=== PATIENT | male | born 1980 | race Caucasian/White ===

== ENCOUNTER 2019-10-26 20:27 | Emergency (ER) | payer MEDICAID, MEDICARE ==
[~2019-10-26] VITALS: Ht 180.3 cm; Wt 115.3 kg
[~2019-10-26 20:27] MED LIST: ALPR0.25 PO; AMOX1TAB12 PO; FURO40TA6 PO; METR500T PO; OXYC10TA6 PO; POTA20TA14 PO; SPIR50TA4 PO; SULF-169 PO; TRAZ50TA66 PO; ZOLP-413 PO
--- NOTE | 2019-10-26 20:36 | NUR ---
PT TO LOBBY, WAIT TIME EXPLAINED.
[2019-10-26 20:57] LABS: BASOPHILS # (AUTO) 0.05 x10^3/uL (0-0.1); BASOPHILS % (AUTO) 1 % (0-1); EOSINOPHILS # (AUTO) 0.08 x10^3/uL (0-0.4); EOSINOPHILS % (AUTO) 1 % (1-7); LYMPHOCYTES # (AUTO) 2.36 x10^3/uL (1-3.4); LYMPHOCYTES % (AUTO) 34 % (22-44); MD NO; MEAN CORPUSCULAR HEMOGLOBIN 36.1 pg (27.5-34.5); MEAN CORPUSCULAR HGB CONC 33.8 g/dL (33.2-36.2); MEAN CORPUSCULAR VOLUME 106.7 fL (81-97); MEAN PLATELET VOLUME 9.3 fL (7.4-10.4); MONOCYTES # (AUTO) 0.43 x10^3/uL (0.2-0.8); MONOCYTES % (AUTO) 6 % (2-9); NEUTROPHILS # (AUTO) 3.97 x10^3/uL (1.8-6.8); NEUTROPHILS % (AUTO) 58 % (42-75); PLATELET COUNT 168 x10^3/uL (130-400); RED BLOOD COUNT 4.57 x10^6/uL (4.38-5.82)
[2019-10-26] MEDS ORDERED: SODIUM CHLORIDE FLUSH 10ML SYR IVF ONE (21:00)
[2019-10-26 21:08] LABS: ALANINE AMINOTRANSFERASE 105 U/L (12-78); ALBUMIN 3.7 g/dL (3.4-5.0); ANION GAP 12 mmol/L (5-15); CALCIUM 9.3 mg/dL (8.5-10.1); CHLORIDE 88 mmol/L (98-107); CREATININE 1.38 mg/dL (0.7-1.3)
[2019-10-26 21:10] LABS: ALKALINE PHOSPHATASE 165 U/L (45-117); BILIRUBIN,TOTAL 5.8 mg/dL (0.2-1.0); TOTAL PROTEIN 6.9 g/dL (6.4-8.2)
--- NOTE | 2019-10-26 21:11 | NUR ---
PT STATES LAST ATE AT 1800, BUT THEN IMMEDIATELY VOMITED.
[2019-10-26] MEDS ORDERED: SODIUM CHLORIDE 0.9% 1,000 ML IV ONE (21:20)
--- NOTE | 2019-10-26 21:26 | NUR ---
PT TO ED FOR DETOX FROM ETOH, ABD SWELLING AND N/V/D X 4 DAYS SINCE PT STOPPED DRINKING. PT STATES HE WAS SOBER FOR 1 YEAR AND STARTED DRINKING AGAIN IN SEPTEMBER. PT CONNECTED TO ALL MONITORS. JORDYN VELA TO BS FOR ASSESSMENT. AWAITING ORDERS.
[2019-10-26] MEDS ORDERED: ONDANSETRON 2MG/ML, 2ML ONE (21:28)
[2019-10-26] MEDS ORDERED: MAGNESIUM SULFATE 1 GM, THIAMINE 100 MG, FOLIC ACID 1 MG, MVI ADULT 10 ML in SODIUM CHL... IV ONE (21:30)
[2019-10-26] MEDS ORDERED: ONDANSETRON 2MG/ML, 2ML IVPush ONE (21:30)
[2019-10-26] MEDS ORDERED: POTASSIUM CHLORIDE 40 MEQ in SODIUM CHLORIDE 0.9% 500 ML IV ONE (21:30)
--- NOTE | 2019-10-26 21:37 | NUR ---
PT MEDICATED PER [facility] FOR NAUSEA. IVF STARTED. PT TO CT AT THIS TIME.
[2019-10-26 21:42] LABS: INTERNATIONAL NORMALIZED RATIO 1.17 (0.93-1.1); PROTHROMBIN TIME 12.2 Seconds (9.6-11.5)
[2019-10-26] MEDS ORDERED: OMNIPAQUE 350 MG/ML, 100ML BOTTLE ONE (21:51)
--- NOTE | 2019-10-26 22:30 | NUR ---
blurb writer called pharmacy, pharmacy oked banana bag to run in 4hrs instead of 8 hrs as long as pt can handle fluid rate.
--- NOTE | 2019-10-27 01:52 | NUR ---
PT RESTING IN BED WATCHING TV. PT STATED "HE FEELS BETTER AND IS READY TO LEAVE BUT IS ANXIOUS ABOUT NOT SLEEPING AT [facility] SINCE HE HAS HAD A HARD TIME FALLING A SLEEP LATELY, PT REQUESTED SLEEPING PILL RX FROM ER"
[2019-10-27 02:54] VITALS: BP 115/69
== END 2019-10-27 02:57 | disposition home or self-care (01) ==
LOC: ED 21:42
DX: K43.9 Ventral hernia without obstruction or gangrene (principal); R11.2 Nausea with vomiting, unspecified; M10.9 Gout, unspecified; E87.6 Hypokalemia; Z72.89 Other problems related to lifestyle
CPT/HCPCS: 36415; 74177; 80053; 80307; 83690; 85025; 85610; 85730; 96361; 96365; 96366; 96368; 96375; 99284; J2405; J3411; J3475; J3480; J7030; J7040; Q9967; 99291

== ENCOUNTER 2019-11-29 19:29 | Emergency (ER) | payer MEDICARE ==
[~2019-11-29] VITALS: Ht 180.3 cm; Wt 118.8 kg
[2019-11-29] MEDS ORDERED: SODIUM CHLORIDE 0.9% 1,000ML IVBOLUS ONE (20:30)
[2019-11-29] MEDS ORDERED: THIAMINE 100 MG/ML, 2ML IM ONE (20:30)
[2019-11-29] MEDS ORDERED: SODIUM CHLORIDE FLUSH 10ML SYR IVF ONE (20:30)
[2019-11-29] MEDS ORDERED: ONDANSETRON ODT 4 MG PO ONE (20:30)
[2019-11-29 20:53] LABS: BASOPHILS # (AUTO) 0.04 x10^3/uL (0-0.1); BASOPHILS % (AUTO) 1 % (0-1); EOSINOPHILS # (AUTO) 0.12 x10^3/uL (0-0.4); EOSINOPHILS % (AUTO) 2 % (1-7); LYMPHOCYTES # (AUTO) 1.38 x10^3/uL (1-3.4); LYMPHOCYTES % (AUTO) 22 % (22-44); MD NO; MEAN CORPUSCULAR HEMOGLOBIN 37.5 pg (27.5-34.5); MEAN CORPUSCULAR HGB CONC 35.2 g/dL (33.2-36.2); MEAN CORPUSCULAR VOLUME 106.3 fL (81-97); MEAN PLATELET VOLUME 9.3 fL (7.4-10.4); MONOCYTES % (AUTO) 6 % (2-9); NEUTROPHILS # (AUTO) 4.49 x10^3/uL (1.8-6.8); NEUTROPHILS % (AUTO) 70 % (42-75); PLATELET COUNT 134 x10^3/uL (130-400); RED BLOOD COUNT 3.96 x10^6/uL (4.38-5.82); RED CELL DISTRIBUTION WIDTH 14.9 % (9.4-14.8)
[2019-11-29 21:02] LABS: ALANINE AMINOTRANSFERASE 80 U/L (12-78); ALBUMIN 3.7 g/dL (3.4-5.0); ANION GAP 8 mmol/L (5-15); CALCIUM 8.7 mg/dL (8.5-10.1); CHLORIDE 95 mmol/L (98-107)
[2019-11-29 21:05] LABS: ALKALINE PHOSPHATASE 161 U/L (45-117); BILIRUBIN,TOTAL 6.3 mg/dL (0.2-1.0); CREATININE 0.92 mg/dL (0.7-1.3)
--- NOTE | 2019-11-29 21:42 | NUR ---
pt to room from lobby
[2019-11-29 21:59] VITALS: BP 114/90
[2019-11-29] MEDS ORDERED: LORazepam 2 MG/ML, 1ML IVPush ONE (22:00)
[2019-11-29] MEDS ORDERED: POTASSIUM CHLORIDE 20 MEQ TAB.ER.PRT PO ONE (22:00)
--- NOTE | 2019-11-29 22:00 | NUR ---
This is a 39 yo male who "Did on a "grissom" started saturday till night; detox on saturday morning; feels like liver hurts; also did methamphetamines to help with detox". Patient is restless and jittery. All monitoring in place, vss, tachycardic when taking and moving around, at rest HR in 90's. Will continue to monitor. Call light in reach
[2019-11-29] MEDS ORDERED: LORazepam 2 MG/ML, 1ML ONE (22:04)
[2019-11-29] MEDS ORDERED: POTASSIUM CHLORIDE 20 MEQ TAB.ER.PRT ONE (22:04)
[2019-11-29] MEDS ORDERED: ONDANSETRON ODT 4 MG ONE (22:04)
--- NOTE | 2019-11-29 22:10 | NUR ---
CLIF Galarza medicated patient per emar
--- NOTE | 2019-11-29 22:20 | NUR ---
PT TO US
[2019-11-29] MEDS ORDERED: THIAMINE 100 MG/ML, 2ML ONE (22:28)
--- NOTE | 2019-11-30 | NUR ---
PATIENT GIVEN THIAMINE SHOT, PIV DISCONTINUED
--- NOTE | 2019-11-30 00:10 | NUR ---
Patient/Caregiver given discharge instructions and they have confirmed that they understand the instructions. Patient ambulatory with steady gait.
== END 2019-11-30 00:11 | disposition home or self-care (01) ==
LOC: ED 22:02
DX: F10.239 Alcohol dependence with withdrawal, unspecified (principal); E87.6 Hypokalemia; F15.10 Other stimulant abuse, uncomplicated; Y90.9 Presence of alcohol in blood, level not specified
CPT/HCPCS: 36415; 74021; 76700; 80053; 83690; 85025; 86704; 86706; 86708; 86803; 87340; 96361; 96372; 96374; 99284; J2060; J3411; J7030; Q0162

== ENCOUNTER 2020-01-24 13:51 | Emergency (ER) | payer MEDICARE ==
[~2020-01-24] VITALS: Ht 180.3 cm; Wt 118.2 kg
[2020-01-24] MEDS ORDERED: ONDANSETRON 2MG/ML, 2ML ONE ×2 (14:29→15:28)
[2020-01-24] MEDS ORDERED: SODIUM CHLORIDE FLUSH 10ML SYR IVF ONE (14:30)
[2020-01-24] MEDS ORDERED: LORazepam 2 MG/ML, 1ML ONE ×2 (14:30→15:27)
[2020-01-24] MEDS ORDERED: FAMOTIDINE 20 MG/2 ML IVPush ONE (14:30)
[2020-01-24] MEDS ORDERED: ONDANSETRON 2MG/ML, 2ML IVPush ONE ×2 (14:30→15:30)
[2020-01-24] MEDS ORDERED: FAMOTIDINE 20 MG/2 ML ONE (14:30)
[2020-01-24] MEDS ORDERED: SODIUM CHLORIDE 0.9% 1,000ML IVBOLUS ONE (14:30)
[2020-01-24 14:36] LABS: BASOPHILS # (AUTO) 0.02 x10^3/uL (0-0.1); BASOPHILS % (AUTO) 0 % (0-1); EOSINOPHILS # (AUTO) 0.01 x10^3/uL (0-0.4); EOSINOPHILS % (AUTO) 0 % (1-7); LYMPHOCYTES # (AUTO) 0.43 x10^3/uL (1-3.4); LYMPHOCYTES % (AUTO) 6 % (22-44); MD NO; MEAN CORPUSCULAR HEMOGLOBIN 32.4 pg (27.5-34.5); MEAN CORPUSCULAR HGB CONC 33.8 g/dL (33.2-36.2); MEAN CORPUSCULAR VOLUME 95.6 fL (81-97); MEAN PLATELET VOLUME 8.1 fL (7.4-10.4); MONOCYTES # (AUTO) 0.28 x10^3/uL (0.2-0.8); MONOCYTES % (AUTO) 4 % (2-9); NEUTROPHILS # (AUTO) 6.75 x10^3/uL (1.8-6.8); NEUTROPHILS % (AUTO) 90 % (42-75); PLATELET COUNT 133 x10^3/uL (130-400); RED BLOOD COUNT 5.39 x10^6/uL (4.38-5.82); RED CELL DISTRIBUTION WIDTH 15.6 % (9.4-14.8)
[2020-01-24] MEDS: LORazepam 2 MG/ML, 1ML IVPush PRN ×2 (14:44→15:33)
[2020-01-24 14:47] LABS: ALANINE AMINOTRANSFERASE 60 U/L (12-78); ANION GAP 14 mmol/L (5-15); CALCIUM 8.3 mg/dL (8.5-10.1); CHLORIDE 108 mmol/L (98-107); CREATININE 1.09 mg/dL (0.7-1.3)
[2020-01-24 14:49] LABS: ALKALINE PHOSPHATASE 113 U/L (45-117); BILIRUBIN,TOTAL 2.5 mg/dL (0.2-1.0); TOTAL PROTEIN 7.4 g/dL (6.4-8.2)
--- NOTE | 2020-01-24 14:49 | NUR ---
THIS IS A 39 YO MALE WHO PRESENTS TO THE ER C/O N/V AND SHAKING SINCE QUITTING DRINKING APPROX 3 DAYS AGO. PT REPORTS HX OF BINGE DRINKING. STATES HE WENT ON A 3-DAY LOWRY DRINKING 2 PINTS/DAY. PT SHAKING FOOT NONSTOP. PT MEDICATED ORDERED. PT ON CONT BP, CARDIAC AND O2 MONITORS. CALL LIGHT WITHIN REACH. WILL CONT TO MONITOR PT.
--- NOTE | 2020-01-24 15:13 | NUR ---
PT APPEARS LESS TREMULOUS AND REPORTS "FEELING A LITTLE BETTER, BUT STILL A LITTLE TWITCHY". PT REQUESTING MORE NAUSEA MEDICATION. CHADWICK CALZADA WAS AT BEDSIDE FOR RECHECK. PT ON CONT BP AND O2 MONITORS. CALL LIGHT WITHIN REACH. WILL CONT TO MONITOR PT.
[2020-01-24 16:09] VITALS: BP 154/90
== END 2020-01-24 16:19 | disposition home or self-care (01) ==
LOC: ED 16:05
DX: F10.239 Alcohol dependence with withdrawal, unspecified (principal); R45.1 Restlessness and agitation; G47.33 Obstructive sleep apnea (adult) (pediatric); R10.9 Unspecified abdominal pain; Y90.0 Blood alcohol level of less than 20 mg/100 ml
CPT/HCPCS: 36415; 74021; 80053; 83690; 85025; 96374; 96375; 96376; 99284; J2060; J2405; J3490; J7030